=== PATIENT | female | born 1965 | race Caucasian/White ===

== ENCOUNTER 2016-08-02 05:24 | Day surgery (SDC) | payer BC ==
[2016-07-31 16:25] LABS: BASOPHILS 0.4 % (0.0-2.0); EOSINOPHILS 2.4 % (0-7); HEMATOCRIT 38.1 % (36.0-48.0); HEMOGLOBIN 11.7 g/dL (12-16); IMMATURE GRANULOCYTES 0.7 % (0-5); LYMPHOCYTES 23.8 % (15-50); MCH 24.5 pg (26.0-34.0); MCHC 30.7 g/dL (31.0-37.0); MCV 79.7 fL (80.0-100.0); MEAN PLATELET VOLUME 9.8 fL (7.4-10.4); MONOCYTES 5.4 % (2-11); NEUTROPHILS 67.3 % (40-80); PLATELET COUNT 307 10x3/uL (130-400); RBC 4.78 10x6/uL (4.00-5.40); RDW 16.8 % (11.5-14.5); WBC 11.5 10x3/uL (4.8-10.8)
[2016-07-31 16:48] LABS: ANION GAP 15.7 mmol/L (8-16); CALCIUM 8.7 mg/dL (8.5-10.1); CARBON DIOXIDE 26.2 mmol/L (21.0-32.0); CREATININE - SERUM 0.9 mg/dL (0.6-1.3); POTASSIUM - SERUM 3.9 mmol/L (3.5-5.1)
[~2016-08-02] VITALS: Ht 177.8 cm; Wt 152.0 kg
[~2016-08-02 05:24] MED LIST: GLUCOPHAGE500 MG PO; LEVOTHYROXINE200 MCG PO; LEXAPRO20 MG PO
[2016-08-02 08:27] VITALS: BP 143/96; Ht 177.8 cm; Wt 152.0 kg
[2016-08-02 08:36] LABS: HCG URINE NEGATIVE (NEGATIVE)
--- NOTE | 2016-08-02 12:28 | NUR ---
PT PLACED ON BIPAP UPON ARRIVAL TO RECOVERY. ANESTHESIA AT BS. TOLERATING WELL ON 100% O2. WILL WEAN TOLERATED.
--- NOTE | 2016-08-02 12:29 | NUR ---
RT WEANED PT DOWN TO 50% O2 AT 1220. TOLERATING WELL WITH SPO2 OF 95%
--- NOTE | 2016-08-02 12:49 | NUR ---
REMOVED BIPAP, PLACED PT ON 4LNC. TOLERATING WELL WITH SPO2 ABOVE 92%.
--- NOTE | 2016-08-02 16:17 | NUR ---
1455-ESCORTED VIA WHEELCHAIR TO PERSONAL CAR, LEFT WITH DRIVING.
--- NOTE | 2016-08-09 09:02 | OP ---
PATIENT NAME: LUIS DON MEDICAL RECORD: [id number] :67 LOCATION:D.OPS ADMISSION DATE: SURGEON: ANIYA CURTIS MD DATE OF OPERATION: 08/02/2016 PREOPERATIVE DIAGNOSES: 1. Post/perimenopausal bleeding. 2. Thickened endometrium. POSTOPERATIVE DIAGNOSES: 1. Post/perimenopausal bleeding. 2. Thickened endometrium. PROCEDURES: Hysteroscopy, D&C. SURGEON: Aniya Curtis MD. ESTIMATED BLOOD LOSS: Minimal. INTRAVENOUS FLUIDS: Per anesthesia records. HYSTEROSCOPIC FLUID LOSS: Approximately 100 cc of 0.9 normal saline. SPECIMENS: Endometrial curettings. FINDINGS: 1. Grossly normal-appearing cervix with a baseline dilation to approximately 3-4 mm. 2. Grossly normal-appearing endometrial cavity in the proliferative phase. PROCEDURE IN DETAIL: The patient taken to the operating room where general anesthesia was achieved without difficulty. The patient was prepped and draped in the normal sterile fashion in the dorsal lithotomy position in the [facility]. SCDs were on and functioning appropriately. Following prepping and draping, the bladder was drained of approximately 50 cc of clear yellow urine. At this point, a Graves speculum was placed in the vagina. The cervix was readily identified and grasped on its anterior lip with a single-tooth tenaculum. The patient was sounded to approximately 11 cm. No dilation was needed to introduce the hysteroscope into the uterine cavity. Findings were as documented following removal of the hysteroscope. A D&C was performed across the majority of the endometrial surface. Good hemostasis was noted from the cervical os. The tenaculum was removed. The patient tolerated the procedure well, was transferred to postanesthesia recovery stable without incident. TRANSINT:[id number] Voice Confirmation ID: [id number] DOCUMENT ID: [id number] ANIYA CURTIS MD at 0902 CC: [id number] DICTATION DATE: 08/02/16 1202 MERCHANDISING SPECIALIST: 08/02/16 1309 REG [facility] [address] [id number]
== END 2016-08-02 14:55 | disposition home or self-care (01) ==
LOC: D.OPS 05:24 → D.PAN 09:30 → D.OPS 14:55
PROVIDERS: Anesthesiology; Obstetrics & Gynecology
DX: N95.0 Postmenopausal bleeding (principal); R93.8 Abnormal findings on diagnostic imaging of other specified body structures; E11.9 Type 2 diabetes mellitus without complications; J45.909 Unspecified asthma, uncomplicated; E05.00 Thyrotoxicosis with diffuse goiter without thyrotoxic crisis or storm; D64.9 Anemia, unspecified; Z79.899 Other long term (current) drug therapy; Z79.84 Long term (current) use of oral hypoglycemic drugs; Z91.040 Latex allergy status; Z91.048 Other nonmedicinal substance allergy status